=== PATIENT | female | born 1975 | race Two or more races ===

== ENCOUNTER 2021-02-01 13:52 | Outpatient (CLI) | payer OTHER | END 2021-02-01 14:05 | disposition home or self-care (01) | LOC: SONOGRAMA 13:52 | PROVIDERS: ATTEND Surgery | DX: N60.11 Diffuse cystic mastopathy of right breast (principal); N60.12 Diffuse cystic mastopathy of left breast ==

== ENCOUNTER 2023-02-10 11:12 | Outpatient (CLI) | payer OTHER | END 2023-02-10 11:19 | disposition home or self-care (01) | LOC: SONOGRAMA 11:12 | PROVIDERS: ATTEND Surgery | DX: N60.81 Other benign mammary dysplasias of right breast (principal) ==